=== PATIENT | female | born 1930 | race Caucasian/White ===

== ENCOUNTER 2017-11-06 13:41 | Outpatient (CLI) | payer MEDICARE, MEDICAID ==
[~2017-11-06 13:41] MED LIST: ACET-896 PO; ALD50T PO; ATOR10TA87 PO; BIMA2.5D4 EACHEYE; BRIM5DRO16 EACHEYE; COU4T PO; DIGO125T PO; OMEP-84 PO; SILD20TA PO; SOTA80TA69 PO; VALS1TAB40 PO; [UNRECOGNIZED DRUG - OTHER] PO
== END 2017-11-06 23:59 | disposition home or self-care (01) ==
LOC: CARD DIAG 13:41
PROVIDERS: ATTEND Internal Medicine Cardiovascular Disease
DX: I08.3 Combined rheumatic disorders of mitral, aortic and tricuspid valves (principal); I31.3 Pericardial effusion (noninflammatory); I11.0 Hypertensive heart disease with heart failure; I50.22 Chronic systolic (congestive) heart failure
CPT/HCPCS: 93306

== ENCOUNTER 2018-08-20 01:21 | Inpatient (IN) | payer MEDICARE, MEDICAID | END 2018-08-22 16:12 | disposition home or self-care (01) | LOC: ER 01:21 → ED HOLD 05:59 → SUR 3N 09:15 | DX: I27.21 Secondary pulmonary arterial hypertension (principal); I11.0 Hypertensive heart disease with heart failure; I50.810 Right heart failure, unspecified; E11.9 Type 2 diabetes mellitus without complications; E78.00 Pure hypercholesterolemia, unspecified ==